=== PATIENT | male | born 1995 | race Caucasian/White ===

== ENCOUNTER 2017-10-17 10:21 | Emergency (ER) | payer MEDICAID ==
--- NOTE | 2017-10-17 11:23 | EDM.PDOC ---
ED HPI GENERAL MEDICAL PROBLEM - General Chief Complaint: General Stated Complaint: BOTTOM RT TOOTH PAIN Time Seen by Provider: 10/17/17 11:00 Source of Information: Reports: Patient History Limitations: Reports: No Limitations - History of Present Illness INITIAL COMMENTS - FREE TEXT/NARRATIVE: 22-year-old male who has a intermittent dental pain on the right mandible for " a long time" but for the past 2 days it's been much worse. He hasn't called the dentist because he doesn't know how his insurance works. No fevers or chills, no significant swelling. Onset: Gradual (Over the past 2 days) Severity: Mild Associated Symptoms: Reports: No Other Symptoms Right Lower Tooth/Teeth Pain Score (Numeric/FACES): 1 - Related Data Allergies Allergy/AdvReac Type Severity Reaction Status Date / Time No Known Allergies Allergy Verified 10/17/17 10:51 Home Meds: Home Meds NK [No Known Home Meds] 10/17/17 [History] Past Medical History - Past Surgical History Other Musculoskeletal Surgeries/Procedures:: R ELBOW REPAIR WITH HARDWARE Social & Family History - Tobacco Use Smoking Status *Q: Unknown Ever Smoked ED ROS GENERAL - Review of Systems Review Of Systems: See Below Constitutional: Denies: Fever, Chills Respiratory: Denies: Shortness of Breath Cardiovascular: Denies: Chest Pain GI/Abdominal: Denies: Abdominal Pain, Nausea, Vomiting ED EXAM, GENERAL - Physical Exam Exam: See Below Exam Limited By: No Limitations General Appearance: Alert, No Apparent Distress Throat/Mouth: Other (Patient has diffuse moderate dental decay, tenderness to percussion of the first molar in the right mandible) Respiratory/Chest: No Respiratory Distress, Lungs Clear Course - Vital Signs Last Recorded V/S: Last Vital Signs Temp 97.4 F 10/17/17 10:46 Pulse 89 10/17/17 10:46 Resp 15 10/17/17 10:46 BP 131/78 10/17/17 10:46 Pulse Ox 98 10/17/17 10:46 - Re-Assessments/Exams Free Text/Narrative Re-Assessment/Exam: 10/17/17 11:21 Placed on Penicillin VK 500 4 times a day for the next 10 days and given 10 hydrocodone for pain control, encouraged him to continue with anti- inflammatories. Hopefully he can get worked into a dental referral early next week. Departure - Departure Time of Disposition: 11:40 Disposition: Home, Self-Care 01 Condition: Good Clinical Impression: Dental caries, Pain due to dental caries - Discharge Information Instructions: Dental Caries Referrals: PCP,None [Primary Care Provider] - Forms: ED Department Discharge Care Plan Goals: Take antibiotic 4 times a day, continue with ibuprofen or naproxen for pain and add stronger pain medication sparingly if needed. Go to the dental clinic next Friday or Friday to hopefully be worked in for an appointment.
== END 2017-10-17 11:40 | disposition home or self-care (01) ==
LOC: JP.ED 10:21
DX: K02.9 Dental caries, unspecified (principal)
CPT/HCPCS: 99283

== ENCOUNTER 2020-03-27 08:28 | Emergency (ER) | payer MEDICAID, OTHER ==
--- NOTE | 2020-03-27 08:55 | EDM.PDOC ---
ED HPI GENERAL MEDICAL PROBLEM - General Chief Complaint: General Stated Complaint: TEETH PAIN Time Seen by Provider: 03/27/20 08:48 Source of Information: Reports: Patient, RN Notes Reviewed History Limitations: Reports: No Limitations - History of Present Illness INITIAL COMMENTS - FREE TEXT/NARRATIVE: 24-year-old gentleman presents emergency department a complaint of dental pain, he has a history of dental abscess in the past started over the last couple of days he has had pain and tenderness he is worried he is developing an abscess no fevers Oral/Mouth Pain Score (Numeric/FACES): 8 - Related Data Allergies Allergy/AdvReac Type Severity Reaction Status Date / Time shrimp Allergy Anaphylactic Verified 03/27/20 08:42 Shock Home Meds: Home Meds NK [No Known Home Meds] 10/17/17 [History] Past Medical History - Past Health History Medical/Surgical History: Denies Medical/Surgical History - Past Surgical History Other Musculoskeletal Surgeries/Procedures:: R ELBOW REPAIR WITH HARDWARE Social & Family History - Caffeine Use Caffeine Use: Reports: Coffee, Soda - Recreational Drug Use Recreational Drug Use: No ED ROS GENERAL - Review of Systems Review Of Systems: See Below Constitutional: Denies: Fever, Chills HEENT: Reports: Dental Pain Respiratory: Reports: No Symptoms Cardiovascular: Reports: No Symptoms ED EXAM, GENERAL - Physical Exam Exam: See Below Exam Limited By: No Limitations General Appearance: Alert, WD/WN, No Apparent Distress Nose: Normal Inspection, Normal Mucosa, No Blood Throat/Mouth: Normal Inspection, Normal Lips, Normal Gums, Normal Oropharynx, Normal Voice, No Airway Compromise, Other (Tenderness tooth #18) Neck: Normal Inspection, Supple, Non-Tender, Full Range of Motion Course - Vital Signs Last Recorded V/S: Last Vital Signs Temp 98.5 F 03/27/20 08:43 Pulse 91 03/27/20 08:43 Resp 20 03/27/20 08:43 BP 128/75 03/27/20 08:43 Pulse Ox 96 03/27/20 08:43 Departure - Departure Time of Disposition: 08:54 Disposition: Home, Self-Care 01 Condition: Fair Clinical Impression: Dental caries, Pain due to dental caries - Discharge Information Instructions: Preventive Dental Care, Adult Referrals: PCP,None [Primary Care Provider] - Additional Instructions: Take full course of antibiotics, please call the dental clinic for emergency services Sepsis Event Note - Evaluation Sepsis Screening Result: No Definite Risk - Focused Exam Vital Signs: Vital Signs Temp Pulse Resp BP Pulse Ox 03/27/20 08:43 98.5 F 91 20 128/75 96 Date Exam was Performed: 03/27/20 Time Exam was Performed: 08:53 - Assessment/Plan Plan: Assessment Acuity = acute Site and laterality = dental abscess Etiology = dental caries Manifestations = pain Location of injury = Home Lab values = none Plan Provided Augmentin 875 p.o. twice daily x10 days phone number was provided for the dental clinic for emergency services he is to call and leave a message This note was dictated using [email or web address] voice recognition software please call with any questions on syntax or grammar.
== END 2020-03-27 08:59 | disposition home or self-care (01) ==
LOC: JP.ED 08:28
DX: K02.9 Dental caries, unspecified (principal); Z91.013 Allergy to seafood
CPT/HCPCS: 99282

== ENCOUNTER 2023-05-05 19:04 | Emergency (ER) | payer OTHER ==
[2023-05-05] MEDS ORDERED: Sodium Chloride 0.9% 10 ML Syringe FLUSH PRN (19:11)
[2023-05-05] MEDS ORDERED: Lactated Ringers 1,000 ML IV SCH (19:15)
[2023-05-05] MEDS ORDERED: Sodium Chloride 0.9% 50 ML IV SCH (19:30)
[2023-05-05] MEDS ORDERED: Iopamidol 612 MG/ML 100 ML Bottle IV SCH (19:30)
[2023-05-05] MEDS ORDERED: Ketorolac 30 MG/ML SDV IM ONE (20:10)
== END 2023-05-05 22:50 | disposition home or self-care (01) ==
LOC: JP.ED 19:04
DX: S42.025A Nondisplaced fracture of shaft of left clavicle, initial encounter for closed fracture (principal); S42.115A Nondisplaced fracture of body of scapula, left shoulder, initial encounter for closed fracture; S70.02XA Contusion of left hip, initial encounter; S30.811A Abrasion of abdominal wall, initial encounter; Z91.013 Allergy to seafood; Z91.038 Other insect allergy status; V27.49XA Other motorcycle driver injured in collision with fixed or stationary object in traffic accident, initial encounter; Y92.410 Unspecified street and highway as the place of occurrence of the external cause
CPT/HCPCS: 71260; 74177; 96372; 99284; J1885; J3490; Q9967

== ENCOUNTER 2025-08-24 16:30 | Emergency (ER) | payer MEDICAID, OTHER ==
[2025-08-24] MEDS: Diphtheria,Pertussis(Acell),Tetanus Vaccine 0.5 ML Syringe IM ONE (17:18)
== END 2025-08-24 17:35 | disposition home or self-care (01) ==
LOC: JP.ED 16:30
DX: S81.851A Open bite, right lower leg, initial encounter (principal); Z91.013 Allergy to seafood; Z91.038 Other insect allergy status; Z23 Encounter for immunization; W54.0XXA Bitten by dog, initial encounter; Y93.89 Activity, other specified
CPT/HCPCS: 90471; 90715; 99283-25